=== PATIENT | female | born 1945 | race Caucasian/White ===

== ENCOUNTER → 2016-10-17 | Outpatient (CLI) | payer OTHER | LOC: FIMAGING 13:32 | PROVIDERS: ATTEND Obstetrics & Gynecology | DX: Z12.39 Encounter for other screening for malignant neoplasm of breast (principal); N63 Unspecified lump in breast | CPT/HCPCS: 76641; G0206 ==

== ENCOUNTER 2018-03-31 13:22 | Observation (INO) | payer OTHER ==
--- NOTE | 2018-03-31 15:14 | EDPHY ---
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 Her arm did not feel weak, numb or tingly. She did not have trouble using her arm. She said she was in the grocery store and she stopped and just did still and rested until the feeling passed lasting somewhere around 10-15 min. Patient said she had a similar feeling once before about a year ago when she ate something with very hot sauce on that. There was no associated diaphoresis, nausea vomiting or shortness of breath. Patient is followed by [facility] for her hypertension and high cholesterol and states she had a stress test about a year ago that was negative. She was not having any symptoms at that time, she said it was a routine test. Patient quit smoking 15-20 years ago. She has a brother and father who had heart disease in their 50s. Patient walks regularly and does not get symptoms when she walks. REVIEW OF SYSTEMS: As in HPI, and all other systems reviewed and are negative Source: Patient, Family - Personal History Tetanus Vaccine Date: 05/2011 - Medical/Surgical History Other PMH: HTN, SCIATICA, HYST, CATARACTS - Social History Smoking Status: Former smoker - Physical Exam Exam: General Appearance: Alert, well-appearing Head: normocephalic, atraumatic Eyes: Pupils equal and round, reactive to light, no pallor or injection. Mouth: Mucous membranes moist. Oropharynx clear Neck: No bony tenderness, full range of motion Respiratory: Normal, effort, lungs are clear to auscultation. No wheezes, rales or rhonchi. Cardiovascular: Regular rate and rhythm. S1, S2, no murmurs, gallops or rubs appreciated Gastrointestinal: Abdomen is soft and nontender, no masses, bowel sounds normal. Back: No CVA tenderness, no bony tenderness Neurological: Awake, alert and oriented x 3, cranial nerves 2-12 intact, no pronator drift, normal gait, Skin: Warm and dry, no rashes. Musculoskeletal: No deformities or tenderness. Extremities: full range of motion, no edema, DP2+ bilat Psychiatric: Patient has normal affect, there is no agitation. Constitutional: O2 Delivery Mode Room Air Allergies/Adverse Reactions: cefaclor [Cefaclor] Allergy (Intermediate, Verified 03/31/18 13:30) Hives Penicillins Allergy (Intermediate, Verified 03/31/18 13:30) Rash Home Medications: Medication Instructions Recorded Lisinopril [Zestril 10 mg (RX)] 10 mg PO DAILY 02/17/13 Medical Decision Making - Diagnostics EKG Interpretation: Normal sinus rhythm at a rate of 72 with normal axis, normal intervals, early R- wave transition in the anterior leads, and no evidence of acute ST segment abnormalities. Impression: Abnormal EKG Imaging Results: Imaging Impressions Chest X-Ray 03/31/18 14:26 Impression: 1. Mild bronchitis/airways disease. 2. Atherosclerotic aorta. 3. No pneumonia or congestive heart failure. ED Course/Re-evaluation: 73-year-old woman with multiple cardiac risk factors presents with episode of atypical left-sided arm heaviness and pain. ECG shows nothing acute, there is no old EKG to compare to available. There is no evidence of anemia. Patient's electrolytes are within normal limits and 1st troponin is negative. A chest x- ray showed nothing acute. Patient remained asymptomatic emerged department and in normal sinus rhythm on the fiberglasser throughout her stay. She is given aspirin in the emergency department. I discussed the case with Dr. Velasquez on-call for [facility] where the patient is followed. He reviewed records which showed the patient had a elevated calcium score 8 years ago. Given this and her multiple cardiac risk factors we felt it was prudent to admit the patient for further observation and evaluation. I discussed the case with the hospitalist diversional therapist's assistant, doctors . I discussed this plan with the patient and her . Patient did prefer to go by private vehicle rather than ambulance. - Data Points Laboratory Results: 03/31/18 03/31/18 13:46 13:46 POC Sodium 139 mEq/L mEq/L (135-145) POC Potassium 4.0 mEq/L mEq/L (3.3-5.0) POC Chloride 107.0 mEq/L mEq/L (97-110) POC Total CO2 23 mEq/L mEq/L (22-31) POC BUN 17 mg/dL mg/dL (7-23) POC Creatinine 1.0 mg/dL mg/dL (0.6-1.0) POC Glucose 124 mg/dL H mg/dL (70-100) POC Calcium 9.2 mg/dL mg/dL (8.5-10.4) POC Total Bilirubin 0.6 mg/dL mg/dL (0.1-1.4) POC AST 28 IU/L IU/L (14-46) POC ALT 22 IU/L IU/L (9-52) POC Alk Phosphatase 73 IU/L IU/L (38-126) POC Troponin I 0.02 ng/mL ng/mL (0.00-0.08) POC Total Protein 6.2 g/dL L g/dL (6.3-8.2) POC Albumin 3.6 g/dL g/dL (3.5-5.0) Point of Care Test Results: CBC CBC Collection Date 03/31/18 CBC Collection Time 13:40 WBC 7.1 RBC 4.49 HGB 14.4 HCT 42.6 PLT 253 Neut # 4.1 Neut 57.7 LYMPH # 2.5 LYMPH 35.4 Other WBC # 0.5 Other WBC 6.9 MCV 94.9 Chemistry 03/31/18 03/31/18 13:46 13:46 POC Sodium 139 mEq/L mEq/L (135-145) POC Potassium 4.0 mEq/L mEq/L (3.3-5.0) POC Chloride 107.0 mEq/L mEq/L (97-110) POC Total CO2 23 mEq/L mEq/L (22-31) POC BUN 17 mg/dL mg/dL (7-23) POC Creatinine 1.0 mg/dL mg/dL (0.6-1.0) POC Glucose 124 mg/dL H mg/dL (70-100) POC Calcium 9.2 mg/dL mg/dL (8.5-10.4) POC Total Bilirubin 0.6 mg/dL mg/dL (0.1-1.4) POC AST 28 IU/L IU/L (14-46) POC ALT 22 IU/L IU/L (9-52) POC Alk Phosphatase 73 IU/L IU/L (38-126) POC Troponin I 0.02 ng/mL ng/mL (0.00-0.08) POC Total Protein 6.2 g/dL L g/dL (6.3-8.2) POC Albumin 3.6 g/dL g/dL (3.5-5.0) Departure - Departure Disposition: [facility] Inpatient Acute Clinical Impression: Chest pain Qualifiers: Chest pain type: unspecified Qualified Code(s): R07.9 - Chest pain, unspecified Condition: Good Referrals: Yoni Marie MD [Primary Care Provider] - As per Instructions
[2018-03-31] MEDS ORDERED: ASPIRIN 81 MG CHEWABLE TAB PO ONE (15:36)
[2018-03-31] MEDS ORDERED: [UNRECOGNIZED DRUG - OTHER] PO PRN (17:41)
[2018-03-31] MEDS ORDERED: DEXTROMETHORPHAN PO PRN (17:41)
[2018-03-31] MEDS ORDERED: PSEUDOEPHEDRINE PO PRN (17:41)
[2018-03-31] MEDS ORDERED: ACETAMINOPHEN PO PRN (17:41)
[2018-03-31] MEDS ORDERED: TEARS/DEXTRAN 70/HYPROMELLOSE 15 ML OPHT.BTL EACHEYE PRN (17:41)
[2018-03-31] MEDS ORDERED: CHLORPHENIRAMINE PO PRN (17:41)
--- NOTE | 2018-03-31 18:32 | GHP ---
[f rep st] HISTORY AND PHYSICAL DATE OF ADMISSION: 03/31/2018 CHIEF COMPLAINT: Left arm pain. HISTORY OF PRESENT ILLNESS: This 73-year-old female presents with an episode of left arm pain. This is her second episode in 2 weeks. This occurred today while she was at the grocery store. Describe d as a warmth/heaviness that started in her shoulder and then slowly moved down her arm. It was asso ciated with a very short somewhat presyncopal episode, as well. She was standing at her car. She wa lked around the store, and the pain resolved on its own. It did not seem to be exertional. It was n ot associated with any chest pain or shortness of breath either. She is followed by Sharon Robledo at [facility] with Cardiology, as I believe she had an elevated calcium score. She had an MPI in June 2017 , which was negative for ischemia. This was apparently a screening exam. She has never been told th at she has a murmur before. PAST MEDICAL/SURGICAL HISTORY: 1. Hypertension. 2. Hyperlipidemia. MEDICATIONS: Please see medication reconciliation. ALLERGIES: Statins, penicillin, and cefaclor. SOCIAL HISTORY: She quit smoking 20 years ago. She does drink wine. FAMILY HISTORY: Brother of congestive heart failure in his 50s. REVIEW OF SYSTEMS: A 10-point review of systems is conducted and is negative except per HPI. PHYSICAL EXAM: VITAL SIGNS: Blood pressure 144/80, heart rate 77, respiration rate 16, saturating 9 7% on room air, and temperature 36.8. GENERAL: The patient is a pleasant female, who is resting com fortably, in no acute distress. HEENT: Shows her to be normocephalic, atraumatic. CARDIOVASCULAR: Regular rate and rhythm. She has a 2/6 crescendo decrescendo murmur, heard best at the right upper sternal border. PULMONARY: Exam shows lungs clear to auscultation bilaterally. ABDOMEN: Soft, non tender, and nondistended. SKIN: No rash. : No Masterson. NEUROLOGIC: Exam shows her to be alert a nd oriented x3. She is moving all extremities. PSYCHIATRIC: Exam shows normal mood and affect. EX TREMITIES: No lower extremity edema. NECK: No elevated JVD. DATA: 1. Labs show troponin of 0.02. Basic metabolic panel is normal as are LFTs. 2. There is no EKG available to me at this point. 3. I personally viewed and interpreted her chest x-ray. This shows mild bronchitis airways disease. She does have calcium in her aorta. 4. I discussed this with Dr. Carrillo. We will admit to PCU. 5. I reviewed MPI from [facility]. IMPRESSION/PLAN: 1. Left arm pain: Atypical for chest pain, though her HEART score is 4. She had a recent nuclear s tress. I do not think ordering another stress at this point will be very diagnostic. For now, we wi ll check an EKG (the report was negative) and trend her troponins. If these are negative, would cons ult Cardiology tomorrow morning for consideration of additional workup. For her murmur, I have order ed an echocardiogram. She has a reportedly elevated calcium score and an atherosclerotic aorta. We will check lipids in the morning. She has been intolerant of statins in the past. 2. Hypertension: Lisinopril. /[id number]/MODL
[2018-03-31 22:26] LABS: PLATELET COUNT 226 10^3/uL (150-400)
[2018-04-01] MEDS ORDERED: LISINOPRIL 5 MG TAB PO SCH (09:00)
[2018-04-01] MEDS ORDERED: DICLOFENAC SODIUM 75 MG TAB PO SCH ×2 (09:00→10:45)
[2018-04-01] MEDS ORDERED: PANTOPRAZOLE SODIUM 40 MG TAB PO SCH (09:00)
[2018-04-01] MEDS ORDERED: NITROGLYCERIN 0.4 MG BTL SL PRN (09:45)
[2018-04-01] MEDS ORDERED: FAMOTIDINE 20 MG TAB PO ONE ×2 (09:45→12:15)
[2018-04-01] MEDS ORDERED: DIAZEPAM 5 MG TAB PO ONE ×2 (09:45→12:15)
[2018-04-01] MEDS ORDERED: diphenhydrAMINE 25 MG CAP PO ONE ×2 (09:45→12:15)
[2018-04-01] MEDS ORDERED: NS 1,000 ML IV SCH (09:45)
[2018-04-01] MEDS ORDERED: ASPIRIN EC 325 MG TAB PO ONE ×2 (09:45→12:15)
[2018-04-01] MEDS ORDERED: ACETAMINOPHEN 325 MG TAB PO PRN (09:45)
[2018-04-01] MEDS ORDERED: TEMAZEPAM 15 MG CAP PO PRN (09:45)
[2018-04-01 10:18] LABS: INR 0.99 (0.83-1.16); PROTIME(PATIENT) 13.3 SEC (12.0-15.0)
[2018-04-01] MEDS ORDERED: LISINOPRIL 5 MG TAB PO ONE (10:45)
--- NOTE | 2018-04-01 11:29 | GCON ---
[f rep st] CONSULTATION CARDIOLOGY CONSULTATION REFERRING PHYSICIAN: Tung Camarillo MD INDICATION FOR CARDIOLOGY CONSULTATION: Chest pressure. HISTORY OF PRESENT ILLNESS: Ms. Vance is a 73-year-old female. She has significant past history that includes subclinical CAD based off cardiac calcium score in April of 2012 (total Agatston score was 451), hypertension , borderline hyperlipidemia, and previous smoker. The patient reports that she had been in her normal state of health and then approximately 1 week ago, while eating, she developed a sudden left arm pain, reporting that it did radiate in her shoulder, not associated with shortness of breath, nausea, or diaphoresis. Reporting no chest pressure. She said stated that it lasted approximately 10 minutes, then went away. She thought potentially this may have been some type of indigestion, and did not think much about it until yesterday, when she was at the grocery store shopping with her , where she felt "a warm sensation " into her left arm and chest, similar to what she had prior. She did feel a little bit of lightheadedness, denying any palpitations at event, and no syncope. She did walk around the store and reported the pain mostly resolved. She found her , who had concerns with her past history. She came to [facility] for further evaluation. Of note, the patient is followed by Sharon Mary, nurse practitioner out of [facility], with their cardiology department. As mentioned above, the patient reports she had been in her normal state health prior to these incidents, and reports no fevers, chills or night sweats. Denies any palpitations, orthopnea, PND, edema, near-syncope or syncopal events. Reporting no symptoms suggestive of TIA or CVA. She does state that she recently underwent an ETT MPI study at [facility] in June of 2017, reporting no signs of ischemia. She has significant cardiac risk factors that include age, previous smoker, hypertension, borderline hyperlipidemia, and family history of coronary artery disease, reporting brother had a heart attack and of congestive heart failure at age 58. PAST MEDICAL HISTORY: 1. Subclinical CAD based off cardiac calcium scoring in 2011, with a total Agatston score of 451. 2. Hypertension. 3. Hyperlipidemia. 4. Previous. PAST SURGICAL HISTORY: She reports she had a hysterectomy done 2 years ago. FAMILY HISTORY: Patient reports brother at age 58 had congestive heart failure and a heart attack, and . SOCIAL HISTORY: She is retired, she is . She has 1 adult child who is alive and well. She reports she was a previous smoker, quitting approximately 20 years ago. She does drink wine 1-2 cups on a daily basis. Denies any illicit drug use. ALLERGIES: Penicillin, cefaclor, and multiple statins with myalgia pain. REVIEW OF SYSTEMS: A 10-point review of systems done on the patient all negative, except as mentioned above. PHYSICAL EXAMINATION: GENERAL APPEARANCE: Medium built, thin, well-groomed female. She is alert and oriented to person, place, time, and situation, and appears to be under no acute distress. VITAL SIGNS: Current vital signs are blood pressure of 120/69, heart rate of 67, sinus rhythm on the monitor. Respirations are 13, saturating 98% on room air. Temperature 36.7 degrees Celsius. HEENT: Head is normocephalic. Lips and tongue are pink and moist with no signs of cyanosis. Conjunctivae pink. NECK: Trachea is midline , +2 carotid pulses bilateral. No auscultated bruits, no jugular vein distention. RESPIRATORY: Lungs are clear to auscultation, no rhonchi, rales or wheezes. No accessory muscle use. No intercostal muscle retraction noted. CARDIAC: Regular rate, regular rhythm, S1, S2. 1-2/6 systolic murmur noted along the left sternal border. ABDOMEN: Soft, nontender, bowel sounds x4 quadrants, no organomegaly, no palpable masses. SKIN: Aragon, warm, dry, no cyanosis, no clubbing, no peripheral edema. VASCULAR: +2 carotids bilateral, + 2 radials bilateral, +2 posterior tibial pulses bilateral. LABORATORY STUDIES: Laboratory studies drawn on admission showed WBC of 6.42, hemoglobin of 12.6, hematocrit 36.6, platelet count of 226. Sodium of 139, potassium 4.0, chloride 107, CO2 23, BUN 17, creatinine 1.0, glucose 124, calcium 9.2. Total bilirubin 0.6, AST 28, ALT 22, alkaline phosphate 73. Initial troponin of 0.02. Total protein 6.2, albumin 3.6. The patient has had 2 other repeated troponins during hospitalization that have been both less than 0.012. Fasting lipid panel done today showing triglycerides of 98, total cholesterol 170, LDL 97, HDL of 53, lipase level drawn was 140, and TSH of 1.750. INR also drawn today was 0.99. STUDIES: Electrocardiogram done on initial emergency department admission showed sinus rhythm with leftward axis, inverted T-waves in lead III, no other acute ST or T-wave abnormalities. Repeated electrocardiogram done approximately 3 hours afterwards, did note sinus rhythm, leftward axis, inverted T in lead III, no other significant abnormalities. No other significant acute symptoms suggesting of ischemia. Chest x-ray done on admission showing mild bronchitis with airway disease, atherosclerotic aorta, no pneumonia or congestive heart failure. ASSESSMENT AND PLAN: 1. Left arm pain: Concerning with 2 episodes, with patient with known subclinical coronary artery disease based off of previous cardiac calcium CT, potentially could be her angina equivalent. She has had 3 negative troponins. She has also had a recent ETT MPI study done in June that she reports were "normal". The patient does have significant cardiac risk factors of age, hypertension, borderline hyperlipidemia, family history of coronary artery disease, previous smoker. Due to all this, it is felt best that the patient be further evaluated for cardiac ischemia. After discussing with Dr. Jiang, with recent MPI study, I feel it would be potentially invalid, and would recommend patient undergo coronary angiogram. The patient is in agreement, she has been n.p.o. since last evening. We will plan for her to have the procedure done at 1 p.m. today. I have also requested copies of her most [facility]. She is also currently undergoing echocardiogram due to murmur, we will evaluate LV wall motion. I have ordered for her to continue on aspirin therapy. No anticoagulation needed at this time. She has been started on aspirin therapy. 2. Hypertension: Patient with past history of hypertension. She has been resumed on home dose of lisinopril, her blood pressure is within normal limits, no changes at this time, but will continue to monitor. 3. Lightheadedness with near-syncope. Patient reporting with left arm pain yesterday, she did become significantly lightheaded and felt that she was going to pass out. Reporting no palpitations at that time. Echocardiogram has been ordered to evaluate cardiac structure and function. TSH and electrolytes within normal limits. No anemia. Depending on results of cardiac catheterization, consideration of having patient do Holter monitoring as an outpatient. 4. Murmur: Patient with noted mild systolic murmur at the left sternal border. Shows no signs of heart failure. Echocardiogram has been ordered by hospitalist service to evaluate cardiac structure and function, results are currently pending. 5. Coronary artery disease: Patient with noted history of subclinical coronary artery disease based off cardiac calcium scoring, angiogram as above. I have recommended that as patient reports she has not been compliant with taking aspirin on a daily basis. Depending on results of catheterization, patient at the very minimum should be on antiplatelet therapy of aspirin. She has been statin intolerant in the past. Her laboratories today did show her LDL of 97. Would recommend that her goal LDL be less than 70. Would consider trying her on pravastatin, which is known to have the least amount of side effects for statin. If she is intolerant to that, consideration of starting her on Zetia. This could be done as an outpatient with her routine cardiology care provider. 6. Hyperlipidemia: LDL is 97 today, as mentioned above, for secondary risk prevention. Thank you for this consultation. We will be glad to follow along with you. /[id number]/MODL MTDD
--- NOTE | 2018-04-01 12:00 | PDHPUP ---
History & Physical Update H&P update statement: This history and physical update is based on an assessment of the patient which was completed after admission or registration (within 24 hours), but prior to the surgery/procedure. H&P update: H&P reviewed & patient examined, no change in patient's condition since H&P completed
--- NOTE | 2018-04-01 12:00 | PDPROPOC ---
Sedation Plan of Care Sedation Plan of Care: vital signs stable, mental status noted, patient educated of risks, benefits, alternatives, patient can tolerate sedation ASA Classification: ASA 2 Planned drugs: fentanyl, midazolam Mallampati Score: Class 2 Mallampati Reference Image: Patient passed 3-3-2 rule?: Yes
[2018-04-01] MEDS ORDERED: LIDOCAINE 1% 300 MG/30 ML SDV ONE (12:05)
[2018-04-01] MEDS ORDERED: fentaNYL 100 MCG/2 ML INJ ONE (12:05)
[2018-04-01] MEDS ORDERED: MIDAZOLAM 2 MG/2 ML VIAL ONE (12:05)
[2018-04-01] MEDS ORDERED: IOPAMIDOL (ISOVUE-370) 150 ML BTL IV ONE (12:05)
--- NOTE | 2018-04-01 13:43 | ECHO ---
[email or web address] [address] Main: [phone] Fax: [email or web address] Echocardiogram Name: JESSICA CHILDERS MR#: [id number] Study Date: 04/01/2018 Study Time: 09:31 AM Date of : 1945 Age: 73 year(s) Height: 162.6 cm (64 in.) Weight: 59.87 kg (132 lb.) BSA: 1.64 m2 Gender: Female Examination: Echo Indication: Chest Pain, Murmur Image Quality: Contrast: Requested by: Tung Camarillo BP: 120 mmHg/69 mmHg Heart Rate: Rhythm: Normal sinus rhythm Indication: Chest Pain, Murmur Procedure Staff Zinc Furnace Charger: Gianluca Stein RDCS Reading Physician: Jayesh Juarez MD Requesting Provider: Conclusions: Normal size left ventricle. EF is 65 %. No regional wall motion abnormality. Diastolic dysfunction is present. . There is mild, focal calcification of the posterior mitral valve leaflet with mild to moderate mitral regurgitation.. Mild aortic cusp calcification is noted. Mild aortic valve regurgitation is present. Mild tricuspid regurgitation is present. The pulmonary artery pressure is normal. No pericardial effusion. No prior study for comparison. Measurements: Chambers Valvular Assessment AV/MV Valvular Assessment TV/PV Normal Normal Normal Name Value Range Name Value Range Name Value Range Ao Susie (MM): 3.3 cm (2.2 cm-3.7 AV Vmax: 1.57 m/s (1 m/s-1.7 TR Vmax: 2.43 mm/s ( - ) cm) m/s) TR PGmax: 24 mmHg ( - ) IVSd (2D): 0.8 cm (0.6 cm-1.1 AV maxP mmHg ( - ) syst. PAP: 29 mmHg ( - ) cm) AV meanP mmHg ( - ) LVDd (2D): 4.7 cm (3.9 cm-5.3 LVOT Vmax: 0.94 m/s (0.7 m/s-1.1 cm) m/s) LVDs (2D): 3.0 cm (2.1 cm-4 MV E Vmax: 0.83 m/s ( - ) cm) MV A Vmax: 1.13 m/s ( - ) LVPWd (2D): 0.9 cm ( - ) MV E/A: 0.73 ( - ) LVEF (2D): 65 (>=54 %) MV meanP mmHg ( - ) Continued Measurements: Patient: JESSICA CHILDERS Study Date: 04/01/2018 Page 1 of 2 09:31 AM Chambers Valvular Assessment AV/MV Valvular Assessment TV/PV Name Value Name Value Name Value LADs Lon.7 cm MV Annulus: 3.0 cm CVP (est.): 5 mmHg LA Area: 11.1 cm2 MV E' Septal: 0.07 m/s MV E/E' Septal: 12.30 MV E/E' Lateral: 19.80 MV VTI: 36.70 cm MR ERO: 0.110 cm2 MR PISA radius: 5 mm MR Reg. Volume: 27 ml MR Reg. Fraction: 10 % Findings: Left Ventricle: Normal size left ventricle. Normal global systolic LV function. EF is 65 %. No regional wall motion abnormality. Diastolic dysfunction is present. . Right Ventricle: Normal size right ventricle. Normal RV function. Left Atrium: The left atrium is normal in size. Right Atrium: The right atrium is normal in size. Mitral Valve: There is mild, focal calcification of the posterior mitral valve leaflet with mild to moderate mitral regurgitation.. Aortic Valve: The aortic valve is tri-leaflet. Mild aortic cusp calcification is noted. Mild aortic valve regurgitation is present. Tricuspid Valve: Mild tricuspid regurgitation is present. The pulmonary artery pressure is normal. Pulmonic Valve: The pulmonic valve is normal in appearance and function. Aorta: The aorta is normal. Pericardium: No pericardial effusion. (No Signature Object) Patient: JESSICA CHILDERS Study Date: 04/01/2018 Page 2 of 2 09:31 AM [id number]
[2018-04-01] MEDS ORDERED: ONDANSETRON 4 MG/2 ML VIAL IVP PRN (14:02)
[2018-04-01] MEDS ORDERED: HYDROCODONE/APAP 5/325 TAB PO PRN (14:02)
[2018-04-01] MEDS ORDERED: ATROPINE SULFATE 1 MG/10 ML SYR IVP PRN (14:02)
--- NOTE | 2018-04-01 14:04 | ASMTCASEMG ---
Living Arrangements What is your living Answers: With Spouse arrangement? Who do you live with? Type Of Residence What kind of residence do Answers: House you live in? Discharge Plan Comments Coordination Status Comments Notes: Pt is a 73 y/o female admitted for chest pain. Pt will most likely d/c independent when medically stable. No therapies ordered at this time. CM available for changes. Plan: Independent Date Signed: 04/01/2018 02:04 PM Electronically Signed By:KAYLIN Obrien
--- NOTE | 2018-04-01 14:21 | PDDXCAT ---
Diagnostic Cath Note - . Date: 04/01/18 Oxygen Therapy Technician: Deidre Indication: Patient w angina/susp CAD, cannot be risk stratified by other means - Procedure Access: right groin Procedure: left heart catheterization, coronary angiography, left ventriculogram - Materials Left Heart Cath size: 6F Left Heart Cath materials: standard multipack (JL4, JR4, pigtail) - Findings-Left Heart Catheterization LM: Short, medium diameter vessel with bifurcation into the LAD and LCX. No luminal irregularities were noted. LAD: Medium diameter vessel with minor luminal irregularities thoughout. The most signficant irregularity was mid LAD (an area with notable calcification prior to the injection of contrast), just proximal to D1 (principal). There were luminal irregularties thoughout of no more than 10% (mid to distal). LCX: Medium diameter vessel with a principal OM1. Luminal irregularities of <10 % were noted in the mid to distal vessel. RCA: Dominal vessel with supply to both PDA and LEATHA vessels. Minor luminal irregularites of <10% were noted throughout EDP: 8 mm Hg LVEF: 65% Wall motion: normal Complications: none Estimated blood loss: <50ml Closure method: Angioseal Assessment: 73 y/o female with history of CAD (by MSCT) without critical CAD noted. There was an approximately 50% lesion to the mid LAD (just prior to the D1). Scattered luminal irregularities of no more than 10% were noted to the LCX and RCA vessels. Normal LVEF was appreciated. Plan: Outpatient follow up with [facility] in one week, and maintain scheduled follow up with primary cardiology. Given the CAD that was noted, would recommend aggressive statin use as well as low dose ASA therapy. Patient Problems: Problems Problem Status Onset Chest pain Acute
[2018-04-01 17:13] VITALS: BP 102/67
--- NOTE | 2018-04-01 18:39 | PDDCSUM ---
Discharge Summary Discharge Summary: DISCHARGE DIAGNOSES: * left arm pain of uncertain etiology, resolved * rule out for MD * noncritical coronary disease with 50% stenosis of mid LAD, luminal irregularities of other vessels * hyperlipidemia with prior intolerance of statin medicines due to muscle symptoms CONSULTANTS: Dr. Kwesi Jiang PROCEDURES: Echocardiogram unremarkable Coronary angiography with 50% mid LAD, otherwise luminal irregularities HOSPITAL COURSE SUMMARY: This patient with no history of coronary disease and with a prior history of negative myocardial perfusion stress, comes to the hospital after episodes of left arm pain suggesting possible angina. She rule out for myocardial infarction, had no heart failure, and no arrhythmia. She went to coronary angiography which showed 50% mid LAD stenosis with otherwise luminal irregularities in other vessels. Echocardiogram was unremarkable with no infarcts or valvular disease. The patient at this point is asymptomatic and stable for discharge to home. She will need to engage in aggressive preventive measures for vascular disease She has a history of intolerance of statins in the past, with severe muscular symptoms but no evidence of rhabdomyolysis. Unfortunately she took at least 2 different statins and does not remember which ones they were. It is possible she may be able to try different statin or perhaps try Zetia, but she will need to get records and fear which medicine she has taken in the past to determine what makes the most sense to try. She understands that she should try and gather this information promptly and follow up with her operational meteorologist in the very near future to get on therapy to trying get her cholesterol down. Current LDL is at 93 with goal less than 70 PENDING TEST RESULTS: None MEDICATION CHANGES: Add daily aspirin She will need to add some kind of medication for cholesterol but will need review of which strep and she has used and follow up with Cardiology determine what can be useful for her FOLLOW-UP PLAN: With Dr. Jiang in [facility] in 1 week She will trying get records to review which statin medicines she has used in the past to help review what medicine she can use for her hyperlipidemia Greater than 35 minutes bedside and care coordination time today
[2018-04-02] MEDS ORDERED: ASPIRIN 81 MG CHEWABLE TAB PO SCH (09:00)
[2018-04-02] MEDS ORDERED: OMEPRAZOLE 20 MG PO SCH (09:00)
[2018-04-02] MEDS ORDERED: LISINOPRIL 5 MG TAB PO SCH ×2 (09:00)
--- NOTE | 2018-04-03 12:55 | CPEKG ---
Test Reason : OPEN Blood Pressure : / mmHG Vent. Rate : 072 BPM Atrial Rate : 072 BPM P-R Int : 135 ms QRS Dur : 092 ms QT Int : 396 ms P-R-T Axes : 034 -14 024 degrees QTc Int : 434 ms Sinus rhythm Consider left ventricular hypertrophy Confirmed by Kwesi Jiang ([id number]) on 04/03/2018 12:55:37 PM Referred By: Confirmed By:Kwsei Jiang
--- NOTE | 2018-04-03 12:56 | CPEKG ---
Test Reason : OPEN Blood Pressure : / mmHG Vent. Rate : 087 BPM Atrial Rate : 087 BPM P-R Int : 157 ms QRS Dur : 097 ms QT Int : 394 ms P-R-T Axes : 045 -11 034 degrees QTc Int : 474 ms Sinus rhythm Confirmed by Kwesi Jiang [id number]) on 04/03/2018 12:55:45 PM Referred By: Confirmed By:Kwesi Jiang
== END 2018-04-01 18:40 | disposition home or self-care (01) ==
LOC: CED 13:22 → CEDHOLD 15:37 → F2W 16:42
PROVIDERS: ADMIT Student in an Organized Health Care Education/Training Program; ATTEND Student in an Organized Health Care Education/Training Program
PROC: B2111ZZ Fluoroscopy of Multiple Coronary Arteries using Low Osmolar Contrast (ICD-10-PCS; principal; 2018-03-31)
PROC: B2151ZZ Fluoroscopy of Left Heart using Low Osmolar Contrast (ICD-10-PCS; principal; 2018-03-31)
PROC: 4A023N7 Measurement of Cardiac Sampling and Pressure, Left Heart, Percutaneous Approach (ICD-10-PCS; principal; 2018-03-31)
DX: M79.602 Pain in left arm (principal); I25.10 Atherosclerotic heart disease of native coronary artery without angina pectoris; E78.5 Hyperlipidemia, unspecified; I10 Essential (primary) hypertension; Z87.891 Personal history of nicotine dependence
CPT/HCPCS: 71046; 93005; 93306; 93458; 99285; C1760; G0378; J1644; J2250; J3010; Q9967; 80053-PO; 84484-PO

== ENCOUNTER → 2018-09-09 | Outpatient (CLI) | payer OTHER | LOC: FIMAGING 12:51 | PROVIDERS: ATTEND Hospitalist | DX: Z12.31 Encounter for screening mammogram for malignant neoplasm of breast (principal); Z80.3 Family history of malignant neoplasm of breast ==